=== PATIENT | female | born 1980 | race Caucasian/White ===

== ENCOUNTER 2023-04-30 19:04 | Emergency (ER) | payer SELFPAY ==
[~2023-04-30] VITALS: Ht 160 cm; Wt 68.0 kg
[~2023-04-30 19:04] MED LIST: COMBIVIR 1501 COMBO PO; CORTISPORIN OTI10 ML AS; CRIXIVAN400 MG PO; LISINOPRIL10 MG PO; PRENATABS OR
[2023-04-30 19:13] VITALS: BP 164/110
[2023-04-30] MEDS ORDERED: ONDANSETRON 4 MG/TAB ODT PO ONE (19:25)
[2023-04-30] MEDS ORDERED: ACETAMINOPHEN 325 MG/TAB PO ONE (19:25)
[2023-04-30 19:30] VITALS: BP 141/102
[2023-04-30 20:00] VITALS: BP 144/95
[2023-04-30 22:49] LABS: URINE BILIRUBIN - DIPSTICK Negative (NEGATIVE); URINE BLOOD DIPSTICK Negative (NEGATIVE); URINE CLARITY Clear; URINE GLUCOSE - DIPSTICK Negative (NEGATIVE); URINE KETONE Negative (NEGATIVE); URINE LEUK ESTERASE Negative (Negative); URINE NITRITE - DIPSTICK Negative (Negative); URINE PROTEIN - DIPSTICK Negative (NEG-TRACE); URINE UROBILINOGEN - DIPSTICK 0.2 E.U./dL (0.2)
[2023-04-30 22:56] LABS: URINE COLOR Yellow
[2023-04-30 23:59] VITALS: BP 144/95
== END 2023-04-30 23:59 | disposition home or self-care (01) | DRG 153 ==
LOC: ED 19:04
PROVIDERS: Family Medicine
DX: J06.9 Acute upper respiratory infection, unspecified (principal); I10 Essential (primary) hypertension; F17.200 Nicotine dependence, unspecified, uncomplicated; Z20.822 Contact with and (suspected) exposure to COVID-19